=== PATIENT | male | born 1960 | race Caucasian/White ===

== ENCOUNTER 2023-05-11 09:29 | Outpatient (RCR) | payer OTHER, SELFPAY | END 2023-06-13 16:09 | disposition home or self-care (01) | LOC: HO.WCC 09:29 | PROVIDERS: PCP Student in an Organized Health Care Education/Training Program; Visit Provider Surgery | DX: T25.221A Burn of second degree of right foot, initial encounter (principal); E11.9 Type 2 diabetes mellitus without complications; I10 Essential (primary) hypertension; Z95.0 Presence of cardiac pacemaker | CPT/HCPCS: 97597; 99212; 99213 ==